=== PATIENT | male | born 1955 | race Hispanic/Latino ===

== ENCOUNTER 2018-10-17 07:04 | Day surgery (SDC) | payer MEDICAID ==
[2018-10-16 12:05] LABS: BASOPHILS % (AUTO) 0.4 % (0.0-5.0); EOSINOPHILS % (AUTO) 3.5 % (0.0-8.0); LYMPHOCYTES % (AUTO) 26.1 % (21.0-51.0); MEAN CORPUSCULAR HEMOGLOBIN 33.1 pg (27.0-33.0); MEAN CORPUSCULAR HGB CONC 34.7 g/dL (32.0-36.0); MEAN CORPUSCULAR VOLUME 95.5 fL (79-99); MONOCYTES % (AUTO) 5.9 % (3.0-13.0); NEUTROPHILS % (AUTO) 64.1 % (40.0-77.0); PLATELET COUNT (AUTO) 206 K/uL (130-400); RED BLOOD CELL COUNT(AUTO) 4.39 MIL/uL (4.50-6.20); RED CELL DISTRIBUTION WIDTH 13.4 % (11.0-15.5); WHITE BLOOD COUNT (AUTO) 5.2 K/uL (4.8-10.8)
[2018-10-16 12:16] VITALS: BP 168/98
[2018-10-16 12:17] LABS: INR 0.99 (0.85-1.15); PARTIAL THROMBOPLASTIN TIME 27.8 SEC (26.3-35.5); PROTHROMBIN TIME 10.4 SEC (9.6-11.6)
[2018-10-16 12:20] LABS: ALBUMIN 4.1 g/dL (3.5-5.0); BILIRUBIN,TOTAL 0.6 mg/dL (0.2-1.0); CREATININE 0.7 mg/dL (0.5-1.5); TOTAL PROTEIN, SERUM 7.9 g/dL (6.0-8.3)
[2018-10-16 12:39] LABS: APPEARANCE,URINE Clear (CLEAR); BILIRUBIN,URINE Negative (NEGATIVE); COLOR,URINE Yellow (YELLOW); GLUCOSE, URINE (UA) Negative (NEGATIVE); KETONES,URINE Negative (NEGATIVE); LEUKOCYTE ESTERASE ,URINE Negative (NEGATIVE); NITRATE,URINE Negative (NEGATIVE); OCCULT BLOOD,URINE Negative (NEGATIVE); PROTEIN,URINE Negative (NEGATIVE)
[~2018-10-17] VITALS: Ht 170.2 cm; Wt 81.8 kg
[2018-10-17] VITALS (16 sets, daily range): BP systolic 147–174; BP diastolic 72–92
[~2018-10-17 07:04] MED LIST: VALS1TAB52 PO
[2018-10-17] MEDS ORDERED: LACTATED RINGERS 1000ML 1,000 ML IV ONE (07:38)
[2018-10-17] MEDS: CEFAZOLIN SODIUM 1 GM VIAL IVP PRN ×2 (08:11→11:07)
[2018-10-17] MEDS ORDERED: LIDOCAINE PF 2% 5ML ABBOJECT ONE ×2 (10:34→12:34)
[2018-10-17] MEDS ORDERED: SUCCINYLCHOLINE 200MG/10ML SYR ONE (10:34)
[2018-10-17] MEDS ORDERED: ONDANSETRON HCL 4 MG/2 ML VIAL ONE (10:34)
[2018-10-17] MEDS ORDERED: MIDAZOLAM HCL 1 MG/ML 2ML VIAL ONE (10:34)
[2018-10-17] MEDS ORDERED: PROPOFOL 10 MG/ML 20ML VIAL IV ONE (10:34)
[2018-10-17] MEDS ORDERED: DEXAMETHASONE SOD PHOSPHATE 10MG/ML 1ML VIAL ONE ×2 (10:34→10:39)
[2018-10-17] MEDS ORDERED: GLYCOPYRROLATE 1 MG/5 ML SYRINGE ONE (10:34)
[2018-10-17] MEDS ORDERED: NEOSTIGMINE 5MG/5ML SYR IV ONE (10:34)
[2018-10-17] MEDS ORDERED: ROCURONIUM 10MG/1ML SYR 10 MG/ML ML ONE ×2 (10:35→12:02)
[2018-10-17] MEDS ORDERED: FENTANYL CITRATE PF 50 MCG/1 ML 2ML VIAL ONE (10:35)
[2018-10-17] MEDS ORDERED: LIDOCAINE HCL-MPF 1% 5ML AMP IJ ONE (10:39)
[2018-10-17] MEDS ORDERED: MEPERIDINE-PF 25 MG/ML SYG ONE ×2 (13:08→13:16)
[2018-10-17] MEDS ORDERED: HYDRALAZINE HCL 20 MG/ML VIAL ONE (13:55)
== END 2018-10-17 15:14 | disposition home or self-care (01) ==
LOC: DAH 07:04
DX: M72.0 Palmar fascial fibromatosis [Dupuytren] (principal); G56.81 Other specified mononeuropathies of right upper limb; Z98.49 Cataract extraction status, unspecified eye; Z98.890 Other specified postprocedural states; Z79.899 Other long term (current) drug therapy; Z83.3 Family history of diabetes mellitus; I10 Essential (primary) hypertension; Z79.01 Long term (current) use of anticoagulants
CPT/HCPCS: 26121; 36415; 64719; 71045; 80053; 81003; 85025; 85610; 85730; 88304; 93005; A4649; A4930; A6223; J0330; J0360; J0690; J1100 ×2; J2001 ×2; J2175 ×2; J2250; J2405; J2704; J2710; J3010; J3490 ×2; J7120

== ENCOUNTER → 2022-09-21 | Outpatient (CLI) | payer OTHER, MEDICAID ==
[~2022-09-21] MED LIST changes: +ALBUMIN (HUMAN) 25% 200 ML IV SCH; +LIDOCAINE HCL 1% 20 ML VIAL ONE; -VALS1TAB52 PO; +VALS1TAB7 PO
[2022-09-21 08:12] LABS: EOSINOPHILS % (AUTO) 1.7 % (0.0-8.0); LYMPHOCYTES % (AUTO) 38.4 % (21.0-51.0); MEAN CORPUSCULAR HEMOGLOBIN 33.1 pg (27.0-33.0); MEAN CORPUSCULAR VOLUME 97.5 fL (79-99); MONOCYTES % (AUTO) 8.2 % (3.0-13.0); NEUTROPHILS % (AUTO) 50.5 % (40.0-77.0); PLATELET COUNT (AUTO) 172 K/uL (130-400); RED BLOOD CELL COUNT(AUTO) 3.59 MIL/uL (4.50-6.20); RED CELL DISTRIBUTION WIDTH 12.1 % (11.0-15.5); WHITE BLOOD COUNT (AUTO) 4.2 K/uL (4.8-10.8)
[2022-09-21 08:28] LABS: INR 1.26 (0.85-1.15); PROTHROMBIN TIME 13.6 SEC (9.6-11.6)
[2022-09-21 08:37] LABS: ALBUMIN 2.8 g/dL (3.5-5.0); CREATININE 0.9 mg/dL (0.5-1.5); POTASSIUM 4.5 mmol/L (3.5-5.1); TOTAL PROTEIN, SERUM 6.9 g/dL (6.0-8.3)
[2022-09-21 12:36] LABS: APPEARANCE BODY FLUID CLEAR (CLEAR); BODY FLUID RBC 89 /cu. mm.; BODY FLUID WBC 238 /cu. mm.; COLOR,BODY FLUID YELLOW (LT YELLOW); SPECIMENTYPE,BODY FLUID ASCITES; TOTAL VOLUME,BODY FLUID 8300 mL
[2022-09-21 13:13] LABS: BF LYMPHOCYTE 31 %; BF MESOTHELIAL 61 %; BF MONOCYTE 6 %
[2022-09-21 13:24] LABS: ALBUMIN,BODY FLUID 0.7 g/dL
== END | disposition home or self-care (01) ==
LOC: RAH 07:31
PROVIDERS: ATTEND Internal Medicine Gastroenterology
DX: R18.8 Other ascites (principal); K76.89 Other specified diseases of liver; Z79.01 Long term (current) use of anticoagulants
CPT/HCPCS: 49083; 84157; 80053; 85025; 89051; 85610; 85730; 87071; 87076; 87205; 82042; 36415; 88108; 88305; P9046; C1729

== ENCOUNTER → 2022-10-09 | Outpatient (CLI) | payer OTHER, MEDICAID ==
[~2022-10-09] MED LIST changes: -ALBUMIN (HUMAN) 25% 200 ML IV SCH; -LIDOCAINE HCL 1% 20 ML VIAL ONE
== END | disposition home or self-care (01) ==
LOC: RAH 08:18
PROVIDERS: ATTEND Internal Medicine Gastroenterology
DX: K74.60 Unspecified cirrhosis of liver (principal); R18.8 Other ascites
CPT/HCPCS: 76700; 93975

== ENCOUNTER → 2023-02-20 | Outpatient (CLI) | payer OTHER, MEDICAID | END | disposition home or self-care (01) | LOC: RAH 09:22 | PROVIDERS: ATTEND Internal Medicine Gastroenterology | DX: K74.60 Unspecified cirrhosis of liver (principal) | CPT/HCPCS: 76700; 93975 ==

== ENCOUNTER → 2023-04-24 | Outpatient (CLI) | payer OTHER, MEDICAID | END | disposition home or self-care (01) | LOC: LAB 08:53 | PROVIDERS: ATTEND Student in an Organized Health Care Education/Training Program | DX: R10.30 Lower abdominal pain, unspecified (principal) | CPT/HCPCS: 36415; 82565; 84520 ==

== ENCOUNTER → 2023-04-27 | Outpatient (CLI) | payer OTHER, MEDICAID ==
[~2023-04-27] MED LIST changes: +IOHEXOL 350 MG/ML 100ML INFUS..BTL IV ONE
== END | disposition home or self-care (01) ==
LOC: RAH 08:49
PROVIDERS: ATTEND Student in an Organized Health Care Education/Training Program
DX: K80.20 Calculus of gallbladder without cholecystitis without obstruction (principal)
CPT/HCPCS: 74177; Q9967

== ENCOUNTER 2023-05-10 07:46 | Day surgery (SDC) | payer OTHER, MEDICAID ==
[2023-05-09 10:28] LABS: BASOPHILS % (AUTO) 0.6 % (0.0-5.0); EOSINOPHILS % (AUTO) 5.3 % (0.0-8.0); HEMATOCRIT 39.4 % (42-54); LYMPHOCYTES % (AUTO) 38.3 % (21.0-51.0); MEAN CORPUSCULAR HGB CONC 33.5 g/dL (32.0-36.0); MEAN CORPUSCULAR VOLUME 92.5 fL (79-99); MONOCYTES % (AUTO) 10.8 % (3.0-13.0); NEUTROPHILS % (AUTO) 44.8 % (40.0-77.0); PLATELET COUNT (AUTO) 134 K/uL (130-400); RED BLOOD CELL COUNT(AUTO) 4.26 MIL/uL (4.50-6.20); RED CELL DISTRIBUTION WIDTH 12.7 % (11.0-15.5); WHITE BLOOD COUNT (AUTO) 4.7 K/uL (4.8-10.8)
[2023-05-09 10:42] LABS: POTASSIUM 4.9 mmol/L (3.5-5.1)
[2023-05-09 11:04] VITALS: BP 156/71
[2023-05-10] VITALS (17 sets, daily range): BP systolic 110–142; BP diastolic 61–73
[~2023-05-10] VITALS: Ht 165.1 cm; Wt 77.7 kg
[~2023-05-10 07:46] MED LIST changes: +BACL10TA PO; +FERR-72 PO; +FLUT16H NASAL; +FURO20TA4 PO; +HYDR-4060 PO; -IOHEXOL 350 MG/ML 100ML INFUS..BTL IV ONE; +MELA1TAB73 PO; +PANT40TA54 PO; +POLY17PO4 PO; +TAMS-1 PO; +TEMA15CA PO; +VALS160T29 PO; -VALS1TAB7 PO; +fish oil PO; +lamisil TP; +milk thistle PO
[2023-05-10] MEDS ORDERED: CEFAZOLIN SODIUM 2 GM VIAL ONE (08:03)
[2023-05-10] MEDS ORDERED: LACTATED RINGERS 1000ML 1,000 ML IV ONE (08:04)
[2023-05-10] MEDS ORDERED: BUPIVACAINE/PF 0.25% 30ML VIAL IJ ONE ×2 (09:18→10:01)
[2023-05-10] MEDS ORDERED: LIDOCAINE HCL 1% 20 ML VIAL ONE (09:18)
[2023-05-10] MEDS ORDERED: FENTANYL CITRATE PF 50 MCG/1 ML 2ML VIAL ONE (09:21)
[2023-05-10] MEDS ORDERED: MIDAZOLAM HCL 1 MG/ML 2ML VIAL ONE (09:21)
[2023-05-10] MEDS ORDERED: PROPOFOL 10 MG/ML 20ML VIAL IV ONE (09:21)
[2023-05-10] MEDS ORDERED: LIDOCAINE HCL-MPF 1% 5ML AMP IJ ONE (09:21)
[2023-05-10] MEDS ORDERED: ROCURONIUM BROMIDE 10MG/1ML 5ML VL ONE (09:25)
[2023-05-10] MEDS ORDERED: CEFAZOLIN SODIUM 2 GM VIAL IVPB ONE (09:45)
[2023-05-10] MEDS ORDERED: DEXAMETHASONE SOD PHOSPHATE 10MG/ML 1ML VIAL ONE (09:52)
[2023-05-10] MEDS ORDERED: EPHEDRINE SULFATE 50 MG/ML AMPULE ONE (09:55)
[2023-05-10] MEDS ORDERED: LIDOCAINE HCL 1% 20 ML VIAL INJ ONE (10:01)
[2023-05-10] MEDS ORDERED: NEOSTIGMINE 5MG/5ML SYR IV ONE (10:19)
[2023-05-10] MEDS ORDERED: GLYCOPYRROLATE 1 MG/5 ML SYRINGE ONE (10:19)
[2023-05-10] MEDS ORDERED: ESMOLOL HCL 10 MG/ML 10 ML VIAL ONE (10:25)
[2023-05-10] MEDS ORDERED: EPINEPHRINE PF 1MG (1:1,000) 1 MG/ML AMP ONE (10:55)
[2023-05-10] MEDS ORDERED: RACEPINEPHRINE HCL 2.25% 0.5 ML NEB SOLN NEB SCH (11:00)
[2023-05-10] MEDS ORDERED: EPINEPHRINE PF 1MG (1:1,000) 1 MG/ML AMP IH ONE (11:30)
== END 2023-05-10 12:10 | disposition home or self-care (01) ==
LOC: DAH 07:46
PROVIDERS: ATTEND Student in an Organized Health Care Education/Training Program
DX: M79.89 Other specified soft tissue disorders (principal); I11.0 Hypertensive heart disease with heart failure; I50.9 Heart failure, unspecified; G47.30 Sleep apnea, unspecified; K21.9 Gastro-esophageal reflux disease without esophagitis; Z79.899 Other long term (current) drug therapy; Z20.820 Contact with and (suspected) exposure to varicella; Z98.890 Other specified postprocedural states; Z20.822 Contact with and (suspected) exposure to COVID-19
CPT/HCPCS: 80048; 85025; 87426; 36415; 93005; 21931; 94640; A6260; A4663; J7120 ×2; J3010; J3490 ×7; J1100; J2710; J0171; J2250; J2704; J0690 ×2; G0168; A4930; A4215; A4223; A4222; A4221; A4600